=== PATIENT | male | born 1940 | race Caucasian/White ===

== ENCOUNTER 2016-08-30 12:37 | Inpatient (IN) | payer MEDICARE, OTHER ==
[~2016-08-30] VITALS: Ht 180.3 cm; Wt 79.0 kg
[~2016-08-30 12:37] MED LIST: ASPIRIN81 MG PO; CENTRUM SILVER1 EAC1 PO; CLARITIN10 MG PO; DILTIAZEM 24HR300 MG PO; DIOVAN160 MG PO; DUONEB 2.5-0.5M1 AMP INH; LEVAQUIN750 MG PO; MUCINEX600 MG PO; PROVENTIL HFA6.7 GM INH; SYMBICORT 1601 PUFFS INH; ZITHROMAX250 MG PO; ZOCOR5 MG PO
[2016-08-30 13:35] LABS: HCT 42.2 % (42.0-52.0); HGB 14.1 g/dl (13.2-18.0); MCH 29.2 pg (25.0-31.0); MCHC 33.4 g/dL (32.0-36.0); MCV 87.4 fL (78.0-100.0); MPV 9.6 fL (6.0-9.5); RBC 4.83 M/uL (4.70-6.00); RDW 13.2 % (11.5-14.0); WBC 19.9 K/uL (4.0-10.5)
[2016-08-30 13:45] LABS: LACTIC ACID 1.1 mmol/L (0.5-2.2)
[2016-08-30 13:50] LABS: POTASSIUM 4.1 mmol/L (3.5-5.1)
[2016-08-30 14:02] LABS: BILIRUBIN - TOTAL 0.7 mg/dL (0.1-1.0); CREATININE 0.9 mg/dL (0.7-1.2); GLOBULIN (CALCULATION) 2.8 g/dL (2.2-4.2); TOTAL PROTEIN 6.8 g/dL (6.4-8.3)
[2016-08-31 04:49] LABS: HCT 38.2 % (42.0-52.0); HGB 12.6 g/dl (13.2-18.0); MCH 28.8 pg (25.0-31.0); MCV 87.4 fL (78.0-100.0); MPV 9.5 fL (6.0-9.5); RBC 4.37 M/uL (4.70-6.00); RDW 13.5 % (11.5-14.0); WBC 18.2 K/uL (4.0-10.5)
[2016-08-31 05:15] LABS: CREATININE 0.9 mg/dL (0.7-1.2)
[2016-09-01 05:22] LABS: HCT 37.1 % (42.0-52.0); HGB 12.1 g/dl (13.2-18.0); MCH 28.8 pg (25.0-31.0); MCHC 32.6 g/dL (32.0-36.0); MCV 88.3 fL (78.0-100.0); MPV 9.7 fL (6.0-9.5); RBC 4.2 M/uL (4.70-6.00); RDW 13.5 % (11.5-14.0)
[2016-09-01 05:39] LABS: CREATININE 0.9 mg/dL (0.7-1.2); POTASSIUM 3.9 mmol/L (3.5-5.1)
[2016-09-02 05:22] LABS: HCT 38.4 % (42.0-52.0); HGB 12.7 g/dl (13.2-18.0); MCH 28.9 pg (25.0-31.0); MCHC 33.1 g/dL (32.0-36.0); MCV 87.3 fL (78.0-100.0); MPV 9.6 fL (6.0-9.5); RBC 4.4 M/uL (4.70-6.00); RDW 13.3 % (11.5-14.0); WBC 8.2 K/uL (4.0-10.5)
[2016-09-02 05:48] LABS: CREATININE 0.8 mg/dL (0.7-1.2); POTASSIUM 3.6 mmol/L (3.5-5.1)
--- NOTE | 2016-09-02 12:27 | NUR ---
REVIEWED DISCHARGE INSTRUCTIONS WITH PT AND SPOUSE BOTH VERBALIZE UNDERSTANDING SCRIPTS REVIEWED
== END 2016-09-02 12:33 | disposition home or self-care (01) | DRG 871 ==
LOC: FER 12:37 → FMS 15:42
PROVIDERS: Internal Medicine; Internal Medicine Cardiovascular Disease; ADMIT Internal Medicine
DX: A41.9 Sepsis, unspecified organism (principal); J18.9 Pneumonia, unspecified organism; J44.0 Chronic obstructive pulmonary disease with (acute) lower respiratory infection; J44.1 Chronic obstructive pulmonary disease with (acute) exacerbation; I10 Essential (primary) hypertension; E78.5 Hyperlipidemia, unspecified; N40.0 Benign prostatic hyperplasia without lower urinary tract symptoms; Z66 Do not resuscitate; Z99.81 Dependence on supplemental oxygen; Z87.891 Personal history of nicotine dependence; Z79.899 Other long term (current) drug therapy; Z79.82 Long term (current) use of aspirin
CPT/HCPCS: 36415; 36600; 71010; 71020; 80048; 80053; 82803; 83605; 87040; 87070; 87205; 93005; 94010; 94640; 97116; 97161; J0456

== ENCOUNTER 2021-08-08 12:19 | Inpatient (IN) | payer MEDICARE, OTHER ==
[~2021-08-08] VITALS: Ht 177.8 cm; Wt 75.8 kg
[~2021-08-08 12:19] MED LIST changes: +CARDIZEM CD240 MG PO; -DILTIAZEM 24HR300 MG PO; -SYMBICORT 1601 PUFFS INH; +SYMBICORT 16010.2 GM INH
[2021-08-08 13:02] LABS: BASOPHIL 0.1 % (0-2); EOSINOPHIL 0.1 % (0-7); HCT 42.4 % (42.0-52.0); HGB 13.8 g/dl (13.2-18.0); LYMPHOCYTE 3.1 % (15-48); MCH 30.1 pg (25.0-31.0); MCHC 32.5 g/dL (32.0-36.0); MCV 92.6 fL (78.0-100.0); MPV 9.9 fL (6.0-9.5); NEUTROPHIL 88.2 % (41-80); NRBC 0; PLT 178 K/uL (150-400); RBC 4.58 M/uL (4.70-6.00); RDW 12.8 % (11.5-14.0); WBC 14.8 K/uL (4.0-10.5)
[2021-08-08 13:21] LABS: ALBUMIN 3.4 g/dL (3.4-5.0); BILIRUBIN - TOTAL 0.9 mg/dL (0.2-1.0); BUN/CREAT RATIO (CALC) 23.7 RATIO; CREATININE 0.76 mg/dL (0.67-1.17); GLOBULIN (CALCULATION) 4.1 g/dL; POTASSIUM 6.1 mmol/L (3.5-5.1); TOTAL PROTEIN 7.5 g/dL (6.4-8.2)
[2021-08-08 13:23] LABS: LACTIC ACID 1.3 mmol/L (0.4-1.9)
[2021-08-08 13:43] LABS: CKMB 4.2 ng/mL (0.0-3.6)
[2021-08-08 14:59] LABS: INR 1.05 (0.9-1.2); PROTHROMBIN TIME 13.1 SECONDS (11.8-13.4); PTT 26.9 SECONDS (24.4-34.7)
[2021-08-08] MEDS ORDERED: PROSCAR5 MG PO (17:48)
[2021-08-08] MEDS ORDERED: ZOCOR20 MG PO (17:49)
[2021-08-08] MEDS ORDERED: FLOMAX0.4 MG PO (17:51)
[2021-08-08 22:26] LABS: BILIRUBIN 1+ mg/dL (NEGATIVE); BLOOD NEGATIVE Ery/uL (NEGATIVE); CLARITY CLEAR (CLEAR); COLOR YELLOW (YELLOW); GLUCOSE (U) NORMAL (NORMAL); LEUKOCYTES NEGATIVE Leu/uL (NEGATIVE); NITRITE NEGATIVE (NEGATIVE); PROTEIN NEGATIVE (NEGATIVE); SPECIFIC GRAVITY >=1.030 (1.001-1.030); UROBILINOGEN 0.2 mg/dL (0.2-1.0); pH 5.5 (5.0-9.0)
[2021-08-09 07:38] LABS: BASOPHIL 0.2 % (0-2); EOSINOPHIL 0 % (0-7); HCT 36.9 % (42.0-52.0); HGB 11.7 g/dl (13.2-18.0); LYMPHOCYTE 4.8 % (15-48); MCH 29.3 pg (25.0-31.0); MCHC 31.7 g/dL (32.0-36.0); MCV 92.5 fL (78.0-100.0); MONOCYTE 9.1 % (0-12); MPV 9.6 fL (6.0-9.5); NEUTROPHIL 85.4 % (41-80); NRBC 0; PLT 209 K/uL (150-400); RBC 3.99 M/uL (4.70-6.00); WBC 10.4 K/uL (4.0-10.5)
[2021-08-09 08:18] LABS: BUN/CREAT RATIO (CALC) 22.8 RATIO; CREATININE 0.79 mg/dL (0.67-1.17); MAGNESIUM 1.8 mg/dL (1.8-2.4)
[2021-08-09 08:29] LABS: POTASSIUM 3.6 mmol/L (3.5-5.1)
[2021-08-09 10:07] LABS: CKMB 3.8 ng/mL (0.0-3.6)
--- NOTE | 2021-08-09 13:38 | NUR ---
08/09/21 Patient / spouse are not interested in HH services at this time, Pt was educated to [facility]end[facility] / [facility]
[2021-08-10 07:21] LABS: HCT 33.7 % (42.0-52.0); MCH 30.2 pg (25.0-31.0); MCHC 32.6 g/dL (32.0-36.0); MCV 92.6 fL (78.0-100.0); MPV 9.3 fL (6.0-9.5); RBC 3.64 M/uL (4.70-6.00); RDW 12.9 % (11.5-14.0); WBC 7.1 K/uL (4.0-10.5)
[2021-08-10 07:42] LABS: BUN/CREAT RATIO (CALC) 21.5 RATIO; CREATININE 0.79 mg/dL (0.67-1.17); MAGNESIUM 2.2 mg/dL (1.8-2.4); POTASSIUM 4.1 mmol/L (3.5-5.1)
[2021-08-10 07:54] LABS: CKMB 3.2 ng/mL (0.0-3.6)
[2021-08-11 06:43] LABS: BUN/CREAT RATIO (CALC) 18.6 RATIO; CREATININE 0.7 mg/dL (0.67-1.17); POTASSIUM 3.8 mmol/L (3.5-5.1)
[2021-08-11] MEDS ORDERED: MUCINEX 600MG600 MG PO (12:15)
[2021-08-11] MEDS ORDERED: SINGULAIR10 MG PO (12:15)
[2021-08-11] MEDS ORDERED: AMOX TR-K CLV1 EAC4 PO (12:15)
--- NOTE | 2021-08-11 12:18 | NUR ---
08/11/21 02 has increased from 2 L (home use) to 4 L. [facility] was informed and will have Dr. Dominguez to sign an order. Report given to Raissa Moreno MD RN.
== END 2021-08-11 13:00 | disposition home or self-care (01) | DRG 871 ==
LOC: FER 12:19 → FMS 14:21
PROVIDERS: Emergency Medicine; Nurse Practitioner; ADMIT Internal Medicine
DX: A41.9 Sepsis, unspecified organism (principal); J96.21 Acute and chronic respiratory failure with hypoxia; J96.22 Acute and chronic respiratory failure with hypercapnia; J44.1 Chronic obstructive pulmonary disease with (acute) exacerbation; J44.0 Chronic obstructive pulmonary disease with (acute) lower respiratory infection; R65.20 Severe sepsis without septic shock; J20.9 Acute bronchitis, unspecified; Z20.822 Contact with and (suspected) exposure to COVID-19; Z66 Do not resuscitate; E87.5 Hyperkalemia; I10 Essential (primary) hypertension; N40.0 Benign prostatic hyperplasia without lower urinary tract symptoms; E78.5 Hyperlipidemia, unspecified; Z99.81 Dependence on supplemental oxygen; Z79.82 Long term (current) use of aspirin; Z79.899 Other long term (current) drug therapy; Z86.16 Personal history of COVID-19; Z85.46 Personal history of malignant neoplasm of prostate; Z90.79 Acquired absence of other genital organ(s); Z87.891 Personal history of nicotine dependence
CPT/HCPCS: 36415; 36600; 71045; 80048; 80053; 81003; 82553; 82803; 83605; 83735; 83880; 84100; 84145; 84484; 85025; 85610; 85730; 87040; 87070; 87205; 87449; 93005; 94010; 94640; 94667; 94668; 94760; 94762; 97162; 97165; 97530-GP; J0456; J0696; J1650; J1940; J3475; J7050; U0002